=== PATIENT | female | born 2000 | race African-American/Black ===

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

== ENCOUNTER 2020-08-04 20:22 | Emergency (ER) | payer MEDICAID ==
[~2020-08-04] VITALS: Ht 172.7 cm; Wt 64.0 kg
[2020-08-04 21:24] LABS: BASOPHILS % 0.8 % (0.0-2.0); EOSINOPHILS % 2.6 % (0.0-5.0); HEMOGLOBIN. 11.6 g/dL (12.0-16.0); LYMPHOCYTES % 37.7 % (20.0-50.0); MEAN CORPUSCULAR HEMOGLOBIN 27.1 pg (28.0-32.0); MEAN CORPUSCULAR VOLUME 83.8 fL (81.0-99.0); MEAN PLATELET VOLUME 8.7 fl (7.4-10.4); MONOCYTES % 6.4 % (2.0-8.0); NEUTROPHILS % 52.5 % (40.0-76.0); PLATELET 231 x1000/uL (130-400)
[2020-08-04 21:34] LABS: CHLORIDE 109 mEq/L (98-107)
[2020-08-04 21:46] LABS: B-HCG QUANTITATIVE < 1 mIU/mL (<3)
[2020-08-04 22:27] VITALS: BP 127/70
== END 2020-08-04 22:30 | disposition home or self-care (01) ==
LOC: ER 20:22
DX: N93.8 Other specified abnormal uterine and vaginal bleeding (principal); R03.0 Elevated blood-pressure reading, without diagnosis of hypertension
CPT/HCPCS: 36415; 76801; 80053; 84702; 85025; 86850; 86900; 93005; 99285